=== PATIENT | male | born 1970 | race African-American/Black ===

== ENCOUNTER 2017-06-20 17:21 | Emergency (ER) | payer MEDICAID ==
[~2017-06-20] VITALS: Ht 167.6 cm; Wt 80.0 kg
[2017-06-20] MEDS ORDERED: BACITRACIN ZINC OINT UDPKT TOP ONE (18:45)
[2017-06-20] MEDS ORDERED: LIDOCAINE HCL 1% 20ML VIAL (Pyxis) INJ MC ONE (18:45)
[2017-06-20] MEDS ORDERED: TETANUS, DIPHTHERIA, PERTUSSIS VAC/PF 0.5ML (>7YR OLD) IM ONE (18:45)
[2017-06-20] MEDS ORDERED: SODIUM BICARBONATE 8.4% MEQ/ML 50ML VIAL IV NR (19:10)
[2017-06-20] MEDS ORDERED: SULFAMETHOXAZOLE/TRIMETHOPRIM 800/160MG TABLET PO ONE (20:00)
[2017-06-20 20:25] VITALS: BP 122/71
== END 2017-06-20 20:30 | disposition home or self-care (01) ==
LOC: ER 18:15
DX: L02.511 Cutaneous abscess of right hand (principal); F12.10 Cannabis abuse, uncomplicated
CPT/HCPCS: 26010; 73130; 87070; 87077; 87186; 87205; 96374; 99285; J3490; 90715